=== PATIENT | male | born 1995 | race Caucasian/White ===

== ENCOUNTER 2021-03-12 20:42 | Emergency (ER) | payer SELFPAY ==
[2021-03-12 20:47] VITALS: BP 153/108; PULSE 74; RESP 18; TEMP 37.1; O2SAT 98; BMI 37.6
[2021-03-12] MEDS: cephALEXin 500 mg Capsule PO (21:03)
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
[2021-03-12] MEDS: silver sulfadiazine cream 1% 50 gm 1 APPLIC TOPICAL (21:40)
[2021-03-12 21:44] VITALS: BP 146/95; PULSE 78; RESP 16
== END 2021-03-12 21:47 | disposition home or self-care (01) ==
LOC: ER 21:26
PROVIDERS: Emergency Provider Nurse Practitioner Family
DX: T24.202A Burn of second degree of unspecified site of left lower limb, except ankle and foot, initial encounter (principal); X17.XXXA Contact with hot engines, machinery and tools, initial encounter
CPT/HCPCS: 99283; A6446

== ENCOUNTER 2022-05-16 17:29 | Emergency (ER) | payer BC, SELFPAY ==
--- NOTE | 2022-05-16 17:57 | ECG_ITS ---
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 Measurements Intervals Dawson Rate: 108 P: 41 WI: 166 QRS: 40 QRSD: 105 T: 44 QT: 329 QTc: 441 Interpretive Statements SINUS TACHYCARDIA ST ELEVATION, PROBABLY EARLY REPOLARIZATION [ST ELEVATION WITH NORMALLY INFLECTED T-WAVE] ABNORMAL RHYTHM ECG INTERPRETATION BASED ON A DEFAULT AGE OF 40 YEARS No previous ECG available for comparison Electronically Signed On 05-17-2022 7:10:45 CDT by Orlando Ness M.D. [email or web address]
[2022-05-16 17:59] VITALS: BP 139/81; PULSE 109; RESP 16; TEMP 36.8; O2SAT 97; BMI 40.4
[2022-05-16 18:40] LABS: Basophils # 0.1 10^3/uL (0.0-0.1); Basophils % 0.8 %; Eosinophils # 0.3 10^3/uL (0.0-0.8); Eosinophils % 3.8 %; Hematocrit 40.3 % (42.0-52.0); Hemoglobin 13.5 g/dL (11.7-16.6); Lymphocytes # 1.3 10^3/uL (0.8-4.8); Lymphocytes % 14.7 %; Mean Corpuscular HGB Conc 33.5 g/dL (30.0-36.0); Mean Corpuscular Hemoglobin 28.5 pg (28.0-34.0); Monocytes # 0.6 10^3/uL (0.2-0.9); Monocytes % 6.6 %; Neutrophils # 6.62 10^3/uL (1.8-7.7); Neutrophils % 73.8 %; Nucleated Red Blood Cells % 0 %; Platelet Count 287 10^3/cmm (130-400); Red Blood Count 4.74 10^6/uL (4.1-5.3); Red Cell Distribution Width 12.8 % (12.1-15.1)
[2022-05-16 19:23] LABS: Troponin(5th) Baseline 6 ng/L (0-15)
[2022-05-16 19:26] LABS: Alanine Aminotransferase 26 U/L (0-41); Albumin Level 4.2 g/dL (3.5-5.2); Alkaline Phosphatase 92 IU/L (40-130); Anion Gap 13.9 (5-19); Aspartate Amino Transferase 18 U/L (0-40); Blood Urea Nitrogen 9 mg/dL (6-20); Calcium 9.1 mg/dL (8.5-10.5); Carbon Dioxide 27 mmol/L (22-29); Chloride 101 mmol/L (98-107); Globulin 2.8 g/dL (1.3-4.6); Glomerular Filtration Rate 101.2 mL/min (90-130); Glucose 101 mg/dL (65-115); Osmolality Calculated 285 mOsm/kg (285-295); Potassium 3.9 mmol/L (3.5-5.1); Sodium 138 mmol/L (136-145); Total Bilirubin 0.2 mg/dL (0.15-1.2)
[2022-05-16 21:10] LABS: Troponin 5 2HR Delta 0 ABS# (0-10)
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
--- NOTE | 2022-05-16 22:06 | XRR_ITS ---
PROCEDURE INFORMATION: Exam: XR Left Shoulder Exam date and time: 05/16/2022 10:14 PM Age: 26 years old Clinical indication: Pain; Shoulder; Left TECHNIQUE: Imaging protocol: Radiologic exam of the Left shoulder. Views: 2 or more views. COMPARISON: No relevant prior studies available. FINDINGS: Bones/joints: No acute fracture. No dislocation. Soft tissues: No radiopaque foreign body. XR/XR shoulder LT min 2V* [id number] IMPRESSION: No acute findings.
[2022-05-16 22:29] VITALS: BP 127/83; PULSE 93; RESP 18; O2SAT 97
--- NOTE | 2022-05-17 09:06 | DCPLANNER ---
Addendum entered by Fany Galindo 06/23/22 09:21: Patient had follow up appointment scheduled with ortho - patient did attend appointment. Addendum entered by Fany Galindo 05/26/22 12:16: Patient has a follow up appointment scheduled for Friday, June 17, 2022 at 10:[address] Ackerman at ortho. Clinic will call patient with appointment information. Original Note: academic affairs manager had message to schedule a follow up appointment for patient with ortho. academic affairs manager sent patients information to the front office staff at ortho. Patients information will be printed and reviewed. Clinic will call patient with appointment information.
== END 2022-05-16 22:58 | disposition home or self-care (01) ==
PROVIDERS: Emergency Provider Nurse Practitioner Family
DX: M75.102 Unspecified rotator cuff tear or rupture of left shoulder, not specified as traumatic (principal)
CPT/HCPCS: 36415; 73030; 80053; 84484; 85025; 93005; 99285

== ENCOUNTER → 2022-06-17 09:33 | Outpatient (BNVA) | payer BC, SELFPAY | PROVIDERS: Visit Provider Orthopaedic Surgery | DX: G54.0 Brachial plexus disorders (principal); M25.512 Pain in left shoulder | CPT/HCPCS: 99203 ==

== ENCOUNTER 2022-08-13 12:09 | Emergency (ER) | payer BC, SELFPAY ==
[2022-08-13 12:21] VITALS: BP 150/87; PULSE 100; RESP 17; TEMP 36.7; O2SAT 97; BMI 44.1
--- NOTE | 2022-08-13 14:20 | PC.NURSE ---
Urine collected and taken to lab
--- NOTE | 2022-08-13 14:23 | W.ED.ABDPA2 ---
HPI - Abdominal Pain General: Chief Complaint: Abdominal Pain Stated Complaint: Abd pain Time Seen by Provider: 08/13/22 13:31 History of Present Illness: Patient is a 26-year-old male that comes to the ED with abdominal pain. Abdominal pain started approximately 10 days ago. It is located in the left upper quadrant and the abdomen. Pain does not radiate anywhere else. Describes it as an aching pain that is mild and he rates it a 3 out of 10. He describes feeling a little bloated, but is able to eat all of his normal foods but says he is eating a little less over the past 10 days. He is having normal bowel movements. Denies any fever, chills, nausea/vomiting, bladder or bowel symptoms. Associated Symptoms: Denies chills, constipation, diarrhea, dysuria, fever(s), hematochezia, hematuria, nausea and vomiting Review of Systems Const: Denies: fever(s), chills or fatigue Eyes: Denies: change in vision or eye discomfort ENMT: Denies: throat pain, odynophagia, nasal discharge or nasal congestion Card: Denies: chest pain, palpitations, edema, swelling of feet/ankles, dyspnea on exertion or orthopnea Resp: Denies: dyspnea, productive cough or non-productive cough GI: Reports: abdominal pain; Denies: nausea, vomiting, diarrhea, constipation or hematochezia : Denies: flank pain, difficulty urinating, dysuria or hematuria Musc: Denies: neck pain, back pain or extremity swelling Skin/Breast: Denies: rash or new lesions Neuro: Denies: headache(s), numbness in extremities or weakness in extremities [facility] ED PFSH: Medical History No pertinent family history Surgical History No pertinent past surgical history Social History Smoking and tobacco status: never smoked Physical Exam Const: COMMON NORMALS: no acute distress, patient oriented x3 and alert GENERAL APPEARANCE: cooperative and comfortable HENMT: COMMON NORMALS: normocephalic HEAD & SCALP: normocephalic MOUTH: Normal oral and palatal mucosa present THROAT: posterior oropharynx normal and uvula midline Neck/C-Spine: COMMON NORMALS: supple GENERAL: Yes normal visual inspection Resp: COMMON NORMALS: normal respiratory effort, No retractions, No use of accessory muscles and clear to auscultation bilaterally AUSCULTATION: clear to auscultation bilaterally Cardio: COMMON NORMALS: regular rate, regular rhythm, S1 normal heart sound present, S2 normal heart sound present, No gallops present (Cardio), No clicks present (Cardio), No murmurs present (Cardio) and Peripheral pulses 2+ throughout RATE: regular rate RHYTHM: regular rhythm HEART SOUNDS: S1 normal heart sound present and S2 normal heart sound present PERIPHERAL PULSES: Peripheral pulses 2+ throughout GI: COMMON NORMALS: Normal to inspection, nondistended, normoactive bowel sounds present, Soft to palpation, non-tender and no masses PALPATION: Yes Soft to palpation : COMMON NORMALS: Yes no CVA tenderness BLADDER/KIDNEY EXAM: Yes no CVA tenderness Back/Pelvis: COMMON NORMALS: no CVA tenderness Extremity: COMMON NORMALS: normal to inspection Neuro: COMMON NORMALS: patient oriented x3 SENSORIUM/ORIENTATION: Yes alert GAIT: Yes Normal gait present Skin: GENERAL SKIN EXAM: dry skin Course Vital Signs: Vital signs: Vital Signs Temperature 98.0 F 08/13/22 12:21 Pulse Rate 88 08/13/22 16:03 Respiratory Rate 16 08/13/22 16:03 Blood Pressure 134/86 08/13/22 16:03 Pulse Oximetry 98 08/13/22 16:03 Oxygen Delivery Me thod 08/13/22 12:21 MDM - Abdominal Pain Medical Decision Making Patient is a 26-year-old male comes to the ED with left-sided abdominal pain for over a week and a half. He has been eating normally and denies any nausea/vomiting, fevers, diarrhea or constipation. Vitals are stable. Patient appears nontoxic in no acute distress or pain. No abdominal tenderness upon palpation of abdomen. Labs were unremarkable. KUB shows moderate retained stool. Given the patient's clinical appearance labs and abdominal x-ray findings patient's abdominal pain is not acute likely due to constipation. He was stable for discharge home and told to follow-up with his PCP within the next week for reevaluation. He was told to take MiraLAX for the next 3 days to help with bowel movements. Return to ED precautions given. Patient understood and agreed with plan. Lab Data I reviewed the patient's lab results. : 08/13/22 14:41 08/13/22 14:41 Labs/Radiology: Radiology Impressions KUB X-Ray 08/13/22 14:30 IMPRESSION: Moderate retained feces. Laboratory Results WBC 10.2 10^3/uL (4.0-10.0) H 08/13/22 14:41 RBC 5.07 10^6/uL (4.1-5.3) 08/13/22 14:41 Hgb 14.4 g/dL (11.7-16.6) 08/13/22 14:41 Hct 42.6 % (42.0-52.0) 08/13/22 14:41 MCV 84.0 fl (80-94) 08/13/22 14:41 MCH 28.4 pg (28.0-34.0) 08/13/22 14:41 MCHC 33.8 g/dL (30.0-36.0) 08/13/22 14:41 RDW 13.2 % (12.1-15.1) 08/13/22 14:41 Plt Count 291 10^3/cmm (130-400) 08/13/22 14:41 MPV 9.8 fL (7.4-10.4) 08/13/22 14:41 Neut % (Auto) 73.8 % 08/13/22 14:41 Lymph % (Auto) 14.1 % 08/13/22 14:41 [place] % (Auto) 7.6 % 08/13/22 14:41 Eos % (Auto) 3.4 % 08/13/22 14:41 Baso % (Auto) 0.6 % 08/13/22 14:41 Neut # (Auto) 7.56 10^3/uL (1.8-7.7) 08/13/22 14:41 Lymph # (Auto) 1.4 10^3/uL (0.8-4.8) 08/13/22 14:41 [place] # (Auto) 0.8 10^3/uL (0.2-0.9) 08/13/22 14:41 Eos # (Auto) 0.4 10^3/uL (0.0-0.8) 08/13/22 14:41 Baso # (Auto) 0.1 10^3/uL (0.0-0.1) 08/13/22 14:41 Nucleated RBC % (auto) 0 % 08/13/22 14:41 Nucleated RBCs # 0.0 /100WBC 08/13/22 14:41 Sodium 133 mmol/L (136-145) L 08/13/22 14:41 Potassium 3.7 mmol/L (3.5-5.1) 08/13/22 14:41 Chloride 97 mmol/L (98-107) L 08/13/22 14:41 Carbon Dioxide 28 mmol/L (22-29) 08/13/22 14:41 Anion Gap 11.7 (5-19) 08/13/22 14:41 BUN 9 mg/dL (6-20) 08/13/22 14:41 Creatinine 0.8 mg/dL (0.7-1.2) 08/13/22 14:41 GFR Calculation 116.0 mL/min (90-130) 08/13/22 14:41 Glucose 102 mg/dL (65-115) 08/13/22 14:41 Calculated Osmolality 275 mOsm/kg (285-295) L 08/13/22 14:41 Calcium 9.7 mg/dL (8.5-10.5) 08/13/22 14:41 Total Bilirubin 0.3 mg/dL (0.15-1.2) 08/13/22 14:41 AST 16 U/L (0-40) 08/13/22 14:41 ALT 25 U/L (0-41) 08/13/22 14:41 Alkaline Phosphatase 88 U/L (40-130) 08/13/22 14:41 Total Protein 7.5 g/dL (6.6-8.7) 08/13/22 14:41 Albumin 4.0 g/dL (3.5-5.2) 08/13/22 14:41 Globulin 3.5 g/dL (1.3-4.6) 08/13/22 14:41 Lipase 28 U/L (13-60) 08/13/22 14:41 Urine Color Straw (Yellow) 08/13/22 14:00 Urine Appearance Clear (CLEAR) 08/13/22 14:00 Urine pH 6 (5-7) 08/13/22 14:00 Ur Specific [place]mond[place] 1.020 (1.005-1.030) 08/13/22 14:00 Urine Protein Neg (Negative) 08/13/22 14:00 Urine Glucose (UA) Norm (Normal) 08/13/22 14:00 Urine Ketones 1+ (Negative) H 08/13/22 14:00 Urine Blood Neg (Negative) 08/13/22 14:00 Urine Nitrate Negative (Negative) 08/13/22 14:00 Urine Bilirubin Neg (Negative) 08/13/22 14:00 Urine Urobilinogen Norm mg/dL (Negative) 08/13/22 14:00 Ur Leukocyte Esterase Negative (Negative) 08/13/22 14:00 Discharge Plan Discharge Patient Disposition: Home Clinical Impression: Constipation Qualifiers: Constipation type: slow transit constipation Qualified Code(s): K59.01 - Slow transit constipation Condition: Stable Prescriptions: No Action Silvadene 1 % cream 1 applic topical BID PRN (Reason: wound healing) Qty: 50 0RF Rx Instructions: apply a 1.5 mm thickness diclofenac potassium 50 mg tablet 50 mg PO TID PRN (Reason: pain) Qty: 14 0RF Discharge Orders: Discharge ED (Routine); Ordered 08/13/22 Ordered By: Damon Chance Referrals: Swathi Breen APN [Primary Care Provider] - Discharge Diet: Regular Discharge Activity: Resume usual activity Patient Instructions: Constipation (DC) Activity Restrictions/Additional Instructions: Follow-up with medical provider as directed. Take [id number] MiraLAX once daily for the next 3 days to help with bowel movements. After taking it for the next 3 days you can take it as needed for any constipation. Return to the ER or your medical provider if condition worsens. Please read and understand discharge instructions. Thank you for choosing [facility] for your healthcare needs today. Please realize this is an emergency room and that we are providing you with a medical screening exam and this may not be complete and all inclusive of all the testing and or work up that you may need to determine your ailment or severity of your illness. It is very important that you follow up as instructed or that you return to the Emergency Department should you have concerns or if your condition changes or worsens in any way. Coding Level of Care Code ED Green Coffee Blender for Rosalba Fwjamie Exam Comprehensive
--- NOTE | 2022-08-13 14:30 | XRR_ITS ---
PROCEDURE INFORMATION: Exam: XR Abdomen Exam date and time: 08/13/2022 2:53 PM Age: 26 years old Clinical indication: Abdominal pain TECHNIQUE: Imaging protocol: Radiologic exam of the abdomen. Views: Frontal supine view of the abdomen. 1 View. COMPARISON: No relevant prior studies available. FINDINGS: Gastrointestinal tract: Moderate retained feces. Bones/joints: Unremarkable. XR/XR KUB portable [id number] IMPRESSION: Moderate retained feces.
[2022-08-13 14:36] LABS: Add Urine Microscopic? NO; Charge for UA Resulting for Rev
[2022-08-13 14:49] LABS: Blood Urine Neg (Negative); Glucose Urine UA Norm (Normal); Ketones Urine 1+ (Negative); Nitrate Urine Negative (Negative); Protein Urine Neg (Negative); Urine Appearance Clear (CLEAR); Urine Color Straw (Yellow); pH Urine 6 (5-7)
[2022-08-13 14:50] LABS: Bilirubin Urine Neg (Negative); Leukocyte Esterase Urine Negative (Negative); Urobilinogen Urine Norm (Negative)
[2022-08-13 15:12] LABS: Basophils # 0.1 10^3/uL (0.0-0.1); Basophils % 0.6 %; Eosinophils # 0.4 10^3/uL (0.0-0.8); Eosinophils % 3.4 %; Hematocrit 42.6 % (42.0-52.0); Hemoglobin 14.4 g/dL (11.7-16.6); Lymphocytes # 1.4 10^3/uL (0.8-4.8); Lymphocytes % 14.1 %; Mean Corpuscular HGB Conc 33.8 g/dL (30.0-36.0); Mean Corpuscular Hemoglobin 28.4 pg (28.0-34.0); Mean Platelet Volume 9.8 fL (7.4-10.4); Monocytes # 0.8 10^3/uL (0.2-0.9); Monocytes % 7.6 %; Neutrophils # 7.56 10^3/uL (1.8-7.7); Neutrophils % 73.8 %; Nucleated Red Blood Cells % 0 %; Platelet Count 291 10^3/cmm (130-400); Red Blood Count 5.07 10^6/uL (4.1-5.3); Red Cell Distribution Width 13.2 % (12.1-15.1); White Blood Count 10.2 10^3/uL (4.0-10.0)
[2022-08-13 15:38] LABS: Alanine Aminotransferase 25 U/L (0-41); Alkaline Phosphatase 88 U/L (40-130); Anion Gap 11.7 (5-19); Aspartate Amino Transferase 16 U/L (0-40); Blood Urea Nitrogen 9 mg/dL (6-20); Calcium 9.7 mg/dL (8.5-10.5); Carbon Dioxide 28 mmol/L (22-29); Chloride 97 mmol/L (98-107); Globulin 3.5 g/dL (1.3-4.6); Glucose 102 mg/dL (65-115); Lipase 28 U/L (13-60); Osmolality Calculated 275 mOsm/kg (285-295); Potassium 3.7 mmol/L (3.5-5.1); Sodium 133 mmol/L (136-145); Total Bilirubin 0.3 mg/dL (0.15-1.2); Total Protein 7.5 g/dL (6.6-8.7)
[2022-08-13 16:03] VITALS: BP 134/86; PULSE 88; RESP 16; O2SAT 98
== END 2022-08-13 16:04 | disposition home or self-care (01) ==
PROVIDERS: Emergency Medicine; Emergency Provider Physician Assistant; PCP Nurse Practitioner Family
DX: K59.01 Slow transit constipation (principal)
CPT/HCPCS: 36415; 74018; 80053; 81003; 83690; 85025; 99284